=== PATIENT | female | born 1990 | race Caucasian/White ===

== ENCOUNTER 2017-02-28 09:12 | Emergency (ER) | payer BC ==
[2017-02-28 09:36] VITALS: BP 112/75
--- NOTE | 2017-02-28 10:34 | EDM.PDOC ---
ED HPI GENERAL MEDICAL PROBLEM - General Chief Complaint: Abdominal Pain Stated Complaint: RT SIDE BACK AND ABD PAIN Time Seen by Provider: 02/28/17 10:19 Source of Information: Reports: Patient History Limitations: Reports: No Limitations - History of Present Illness INITIAL COMMENTS - FREE TEXT/NARRATIVE: Patient is a 26-year-old female with a history of ectopic to the left fallopian tube. Presents to the ED complaining of right adnexa pain. States last night developed a dull ache to the right adnexa. Throughout the course of the evening pain has progressively gotten worse. She has increasing pain to this area with movement, palpation, runny her fingers over her skin. She has severe crampy sensation to this area consistent with previous ectopic . She has some intermittent lightheadedness and dysuria. She does note that there is some abnormal discharge described as being clear and slick. and patient are attempting to have another child. She's been on the control for one month. Breasts do feel tender. She's had a few episodes of diarrhea yesterday none today. No blood noted. Mildly nauseated with no emesis. States previous ectopic was initially diagnosed incorrectly as chlamydia. She's had no STDs in the past. States they had to do the ultrasound to rule in ectopic . In addition the test was negative at that time as well. She denies any fever, chills, nausea/vomiting, chest pain, shows breath, and dizziness with admission to the ED. Abdomen Pain Score (Numeric/FACES): 8 - Related Data Allergies Allergy/AdvReac Type Severity Reaction Status Date / Time No Known Allergies Allergy Verified 02/28/17 09:23 Home Meds: Home Meds . [No Known Home Meds] 02/28/17 [History] Past Medical History [employer] History: Reports: Ectopic , , Other (See Below) Other OB/BYN History: left tubal Endocrine/Metabolic History: Reports: Diabetes, Gestational Other Endocrine/Metabolic History: induced Hyperglycemia diet controlled - Past Surgical History Oncologic Surgical History: Reports: Biopsy of Breast Social & Family History - Family History Family Medical History: Noncontributory - Tobacco Use Smoking Status *Q: Never Smoker Years of Tobacco use: 2 Used Tobacco, but Quit: Yes Month Tobacco Last Used: 2013 Second Hand Smoke Exposure: No - Recreational Drug Use Recreational Drug Use: No ED ROS GENERAL - Review of Systems Review Of Systems: See Below Constitutional: Denies: Fever, Chills, Decreased Appetite Respiratory: Reports: No Symptoms Cardiovascular: Reports: No Symptoms GI/Abdominal: Reports: Abdominal Pain, Diarrhea (Intermittent yesterday none today), Nausea (Intermittent). Denies: Anorexia, Black Stool, Bloody Stool, Constipation, Difficulty Swallowing, Distension, Flatus, Hematemesis, Hematochezia, Melena, Vomiting : Reports: Dysuria. Denies: Flank Pain, Frequency, Hematuria, Urgency, Urinary Retention Musculoskeletal: Reports: Back Pain (Low back bilaterally) Neurological: Denies: Dizziness, Headache ED EXAM, GI/ABD - Physical Exam Exam: See Below Exam Limited By: No Limitations General Appearance: Alert, WD/WN, No Apparent Distress Ears: Hearing Grossly Normal Nose: Normal Inspection Throat/Mouth: Normal Voice, No Airway Compromise Neck: Normal Inspection, Supple Respiratory/Chest: No Respiratory Distress, Lungs Clear, Normal Breath Sounds, No Accessory Muscle Use, Chest Non-Tender Cardiovascular: Normal Peripheral Pulses, Regular Rate, Rhythm GI/Abdominal Exam: Normal Bowel Sounds, Soft, No Organomegaly, No Distention, Tender (Right adnexa) (Female) Exam: Normal External Exam, Adnexal Tenderness (Right side), Cervical Discharge (Thick milky colored discharge mild amount.), Vaginal Discharge. No: Adnexal Mass, Cervical Dilatation, Cervical Lesions (Mild redness to the cervix no tenderness with palpation.), Cervix Motion Tenderness, Uterine Tenderness, Vaginal Bleeding, Vaginal Lesions, Vaginal Tears Back Exam: Normal Inspection. No: CVA Tenderness (L), CVA Tenderness (R) Neurological: Alert, Oriented, CN II-XII Intact, Normal Cognition, No Motor/ Sensory Deficits Psychiatric: Normal Affect, Normal Mood Skin Exam: Warm, Dry, Intact, Normal Color Course - Vital Signs Last Recorded V/S: Last Vital Signs Temp 97.5 F 02/28/17 09:32 Pulse 88 02/28/17 09:32 Resp 18 02/28/17 09:32 BP 112/75 02/28/17 09:32 Pulse Ox 100 02/28/17 09:32 - Orders/Labs/Meds Labs: Laboratory Tests 02/28/17 02/28/17 02/28/17 Range/Units 09:24 09:24 10:15 WBC 9.58 (3.98-10.04) K/mm3 RBC 4.56 (3.98-5.22) M/mm3 Hgb 14.2 (11.2-15.7) gm/L Hct 41.8 (34.1-44.9) % MCV 91.7 (79.4-94.8) fl MCH 31.1 (25.6-32.2) pg MCHC 34.0 (32.2-35.5) g/dl RDW Std Deviation 40.2 (36.4-46.3) fL Plt Count 332 (182-369) K/mm3 MPV 8.4 L (9.4-12.3) fl Neut % (Auto) 66.2 (34.0-71.1) % Lymph % (Auto) 24.9 (19.3-51.7) % [place] % (Auto) 7.5 (4.7-12.5) % Eos % (Auto) 1.1 (0.7-5.8) Baso % (Auto) 0.2 (0.1-1.2) % Neut # (Auto) 6.33 H (1.56-6.13) K/mm3 Lymph # (Auto) 2.39 (1.18-3.74) K/mm3 [place] # (Auto) 0.72 H (0.24-0.36) K/mm3 Eos # (Auto) 0.11 (0.04-0.36) K/mm3 Baso # (Auto) 0.02 (0.01-0.08) K/mm3 Sodium (136-145) mEq/L Potassium (3.5-5.1) mEq/L Chloride (98-107) mEq/L Carbon Dioxide (21-32) mEq/L Anion Gap (5-15) BUN (7-18) mg/dL Creatinine (0.55-1.02) mg/dL Est Cr Clr Drug Dosing mL/min Estimated GFR (MDRD) (>60) mL/min BUN/Creatinine Ratio (14-18) Glucose (74-106) mg/dL Calcium (8.5-10.1) mg/dL Total Bilirubin (0.2-1.0) mg/dL AST (15-37) U/L ALT (14-59) U/L Alkaline Phosphatase (46-116) U/L C-Reactive Protein (<1.0) mg/dL Total Protein (6.4-8.2) g/dl Albumin (3.4-5.0) g/dl Globulin gm/dL Albumin/Globulin Ratio (1-2) HCG, Qual (NEGATIVE) Urine Color Yellow (Yellow) Urine Appearance Clear (Clear) Urine pH 6.0 (5.0-8.0) Ur Specific Vest > or = 1.030 (1.005-1.030) Urine Protein Trace H (Negative) Urine Glucose (UA) Negative (Negative) Urine Ketones Negative (Negative) Urine Occult Blood Trace-intact H (Negative) Urine Nitrite Negative (Negative) Urine Bilirubin Negative (Negative) Urine Urobilinogen 0.2 (0.2-1.0) Ur Leukocyte Esterase Negative (Negative) Urine RBC 0-5 (0-5) /hpf Urine WBC 0-5 (0-5) /hpf Ur Epithelial Cells 10-20 H (0-5) /hpf Urine Bacteria Few (FEW) /hpf Urine Mucus Not seen (FEW) /hpf Urine HCG, Qual Negative (NEGATIVE) C trachomatis DNA (PCR) N gonorrhoeae DNA (PCR) 02/28/17 02/28/17 02/28/17 Range/Units 10:15 10:15 10:15 WBC (3.98-10.04) K/mm3 RBC (3.98-5.22) M/mm3 Hgb (11.2-15.7) gm/L Hct (34.1-44.9) % MCV (79.4-94.8) fl MCH (25.6-32.2) pg MCHC (32.2-35.5) g/dl RDW Std Deviation (36.4-46.3) fL Plt Count (182-369) K/mm3 MPV (9.4-12.3) fl Neut % (Auto) (34.0-71.1) % Lymph % (Auto) (19.3-51.7) % [place] % (Auto) (4.7-12.5) % Eos % (Auto) (0.7-5.8) Baso % (Auto) (0.1-1.2) % Neut # (Auto) (1.56-6.13) K/mm3 Lymph # (Auto) (1.18-3.74) K/mm3 [place] # (Auto) (0.24-0.36) K/mm3 Eos # (Auto) (0.04-0.36) K/mm3 Baso # (Auto) (0.01-0.08) K/mm3 Sodium 139 (136-145) mEq/L Potassium 4.0 (3.5-5.1) mEq/L Chloride 103 (98-107) mEq/L Carbon Dioxide 24 (21-32) mEq/L Anion Gap 16.0 H (5-15) BUN 12 (7-18) mg/dL Creatinine 0.8 (0.55-1.02) mg/dL Est Cr Clr Drug Dosing 87.38 mL/min Estimated GFR (MDRD) > 60 (>60) mL/min BUN/Creatinine Ratio 15.0 (14-18) Glucose 101 (74-106) mg/dL Calcium 9.4 (8.5-10.1) mg/dL Total Bilirubin 0.5 (0.2-1.0) mg/dL AST 22 (15-37) U/L ALT 36 (14-59) U/L Alkaline Phosphatase 57 (46-116) U/L C-Reactive Protein 0.8 (<1.0) mg/dL Total Protein 7.8 (6.4-8.2) g/dl Albumin 3.8 (3.4-5.0) g/dl Globulin 4.0 gm/dL Albumin/Globulin Ratio 1.0 (1-2) HCG, Qual Negative (NEGATIVE) Urine Color (Yellow) Urine Appearance (Clear) Urine pH (5.0-8.0) Ur Specific Vest (1.005-1.030) Urine Protein (Negative) Urine Glucose (UA) (Negative) Urine Ketones (Negative) Urine Occult Blood (Negative) Urine Nitrite (Negative) Urine Bilirubin (Negative) Urine Urobilinogen (0.2-1.0) Ur Leukocyte Esterase (Negative) Urine RBC (0-5) /hpf Urine WBC (0-5) /hpf Ur Epithelial Cells (0-5) /hpf Urine Bacteria (FEW) /hpf Urine Mucus (FEW) /hpf Urine HCG, Qual (NEGATIVE) C trachomatis DNA (PCR) N gonorrhoeae DNA (PCR) 10/11/17 Range/Units 10:54 WBC (3.98-10.04) K/mm3 RBC (3.98-5.22) M/mm3 Hgb (11.2-15.7) gm/L Hct (34.1-44.9) % MCV (79.4-94.8) fl MCH (25.6-32.2) pg MCHC (32.2-35.5) g/dl RDW Std Deviation (36.4-46.3) fL Plt Count (182-369) K/mm3 MPV (9.4-12.3) fl Neut % (Auto) (34.0-71.1) % Lymph % (Auto) (19.3-51.7) % [place] % (Auto) (4.7-12.5) % Eos % (Auto) (0.7-5.8) Baso % (Auto) (0.1-1.2) % Neut # (Auto) (1.56-6.13) K/mm3 Lymph # (Auto) (1.18-3.74) K/mm3 [place] # (Auto) (0.24-0.36) K/mm3 Eos # (Auto) (0.04-0.36) K/mm3 Baso # (Auto) (0.01-0.08) K/mm3 Sodium (136-145) mEq/L Potassium (3.5-5.1) mEq/L Chloride (98-107) mEq/L Carbon Dioxide (21-32) mEq/L Anion Gap (5-15) BUN (7-18) mg/dL Creatinine (0.55-1.02) mg/dL Est Cr Clr Drug Dosing mL/min Estimated GFR (MDRD) (>60) mL/min BUN/Creatinine Ratio (14-18) Glucose (74-106) mg/dL Calcium (8.5-10.1) mg/dL Total Bilirubin (0.2-1.0) mg/dL AST (15-37) U/L ALT (14-59) U/L Alkaline Phosphatase (46-116) U/L C-Reactive Protein (<1.0) mg/dL Total Protein (6.4-8.2) g/dl Albumin (3.4-5.0) g/dl Globulin gm/dL Albumin/Globulin Ratio (1-2) HCG, Qual (NEGATIVE) Urine Color (Yellow) Urine Appearance (Clear) Urine pH (5.0-8.0) Ur Specific Vest (1.005-1.030) Urine Protein (Negative) Urine Glucose (UA) (Negative) Urine Ketones (Negative) Urine Occult Blood (Negative) Urine Nitrite (Negative) Urine Bilirubin (Negative) Urine Urobilinogen (0.2-1.0) Ur Leukocyte Esterase (Negative) Urine RBC (0-5) /hpf Urine WBC (0-5) /hpf Ur Epithelial Cells (0-5) /hpf Urine Bacteria (FEW) /hpf Urine Mucus (FEW) /hpf Urine HCG, Qual (NEGATIVE) C trachomatis DNA (PCR) Not detected N gonorrhoeae DNA (PCR) Not detected - Re-Assessments/Exams Free Text/Narrative Re-Assessment/Exam: IV established. Pain is under control at this time with lying still. Initial labs include CBC, chem 14, hCG qualitative serum and urine, and UA. We'll complete a vaginal exam including: Speculum and bimanual. Once results of labs are present will order transvaginal ultrasound either OB or non-OB. Vaginal exam revealed mild amount of thick white discharge in the vaginal vault with mild redness to the cervix. No cervical motion tenderness. Pain with palpation of the right adnexa. Wet prep along with GC ordered. Labs reviewed: CBC, chem 14 essentially normal. CRP normal. HCG negative. UA trace blood negative for infection. GC negative. Wet Prep was negative for any concerning findings. Ultrasound impression: Small amount of free fluid within the pelvis most likely physiological. Pelvic ultrasound is otherwise unremarkable. Shared results of exams and labs with patient. She continues have pain in the right adnexal area. Offered to obtain a CT the abdomen and pelvis to further delineate cause of pain. Patient has opted not to at this point and will return back if pain worsens. Discharge instructions as documented. Departure - Departure Time of Disposition: 13:13 Disposition: Home, Self-Care 01 Condition: Good Clinical Impression: Right adnexal tenderness - Discharge Information Instructions: Abdominal Pain, Adult, Enba-tc-Ulpt Referrals: Yulia Arriola DO [Primary Care Provider] - Forms: ED Department Discharge Additional Instructions: Unclear at this point etiology of current complaint. Ultrasound, blood work, and vaginal exam did not reveal any concerning findings. Thus if you develop any new or worsening symptoms including increasing pain please return to ED for reevaluation. Follow-up with [employer] specialist this coming week for reevaluation. Take Tylenol and ibuprofen in alternating fashion for discomfort. No driving this afternoon since receiving a sedative medication in the ED.
[2017-02-28 12:50] LABS: C. TRACHOMATIS BY PCR NOT DETECTED; N. GONORRHOEAE BY PCR NOT DETECTED
--- NOTE | 2017-02-28 12:59 | US ---
Pelvic ultrasound: Multiple real-time images were obtained transvaginally. Uterus is anteverted. No myometrial abnormality is seen. Endometrial thickness is 5.3 mm. There is a small amount of free fluid scattered within the pelvis. Ovaries are seen and show follicles. No larger cyst or solid abnormality is appreciated. Measurements: Uterus: Length 7.2 cm, AP height 3.4 cm, transverse width is 4.4 cm Right ovary: 3.2 x 1.9 x 2.7 cm Left ovary: 2.7 x 1.1 x 1.7 cm Impression: 1. Small amount of free fluid within the pelvis most likely physiologic. 2. Pelvic ultrasound is otherwise unremarkable. Diagnostic code #2
== END 2017-02-28 13:30 | disposition home or self-care (01) ==
LOC: JD.ED 09:12
DX: R10.2 Pelvic and perineal pain (principal)
CPT/HCPCS: 36415; 76830; 76830-26; 80053; 81001; 81025; 84703; 85025; 86140; 87210; 87491; 87591; 87808; 99284; 99284-25

== ENCOUNTER 2017-09-10 09:44 | Emergency (ER) | payer BC ==
[2017-09-10 09:58] VITALS: BP 110/67
[2017-09-10] MEDS ORDERED: Dextrose 5%-0.9% NaCl 1,000 ML IV SCH (10:00)
--- NOTE | 2017-09-10 10:00 | EDM.PDOC ---
ED HPI GENERAL MEDICAL PROBLEM - General Chief Complaint: CORRECTIONAL SERGEANT Problem Stated Complaint: 6 WKS PG CRAMPING Time Seen by Provider: 09/10/17 10:00 Source of Information: Reports: Patient History Limitations: Reports: No Limitations - History of Present Illness INITIAL COMMENTS - FREE TEXT/NARRATIVE: 7-year-old female presents to the ED with acute onset of left lower quadrant left pelvic pain. She states she awoke from sleep about 0230 hours this morning with severe pain left lower quadrant of the pelvis and abdomen. She states it took about 3-4 hours but she was able to go back to sleep for short period of time. Upon awakening this morning the pain factor is worse left lower quadrant. It hurts to walk it hurts to sit and patient is known to be with last menstrual period around July making her about 6 weeks gestation. She 's had no bleeding per vagina. She has had a previous ectopic . She is 5 para 1 with a 2-year-old at home. Baby was born vaginally. She had surgery for ruptured ectopic . Vital signs are at this time are stable. Pain radiates through to her left lower back. States her bowel function has been normal. No genitourinary complaints. No fever no chills. He still little nauseated. Breath still feel full signs symptoms of still present. Onset: Today Onset Date: 09/10/17 Onset Time: 02:30 Duration: Hour(s): Location: Reports: Abdomen (Left lower quadrant of abdomen and pelvis.) Quality: Reports: Ache, Throbbing Severity: Moderate (3 out of 10 at present) Improves with: Reports: Rest Worsens with: Reports: Other, Movement Context: Reports: Other. Denies: Activity (Coughing or walking.), Exercise, Lifting, Sick Contact, Trauma Associated Symptoms: Reports: No Other Symptoms (Spontaneous occurrence during sleep. Awoke from sleep around 0-30 hours.). 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 LNMP started Jul 27.) Other OB/BYN History: left tubal Endocrine/Metabolic History: Reports: Diabetes, Gestational Other Endocrine/Metabolic History: induced Hyperglycemia diet controlled - Past Surgical History Oncologic Surgical History: Reports: Biopsy of Breast Social & Family History - Family History Family Medical History: Noncontributory - Tobacco Use Smoking Status *Q: Never Smoker Years of Tobacco use: 2 Used Tobacco, but Quit: Yes Month/Year Tobacco Last Used: 2013 Second Hand Smoke Exposure: No - Recreational Drug Use Recreational Drug Use: No - Living Situation & Occupation Living situation: Reports: Occupation: Unemployed (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 Denies: Fever, Chills, Weight Loss HEENT: Reports: No Symptoms Respiratory: Reports: No Symptoms Cardiovascular: Reports: No Symptoms Endocrine: Reports: Fatigue GI/Abdominal: Reports: Abdominal Pain (See history of present illness.) : Reports: No Symptoms Musculoskeletal: Reports: Back Pain (Low back pain on the left side correlating with onset of left lower quadrant) Skin: Reports: No Symptoms Neurological: Reports: No Symptoms Psychiatric: Reports: No Symptoms Hematologic/Lymphatic: Reports: No Symptoms Immunologic: Reports: No Symptoms ED EXAM - Physical Exam Exam: See Below Exam Limited By: No Limitations General Appearance: Alert, WD/WN, Mild Distress Eye Exam: Bilateral Eye: Normal Inspection Respiratory/Chest: No Respiratory Distress, Lungs Clear, Normal Breath Sounds, No Accessory Muscle Use Cardiovascular: Normal Peripheral Pulses, No Edema, No Gallop, Tachycardia ( Tachycardia rest 1 1/m.) GI/Abdominal Exam: Guarding (Tenderness localized to the left lower card and with guarding and very mild rebound.), Rebound, Tender, Abnormal Bowel Sounds ( Bowel sounds are quiet sent.). No: Rigid (Mild) (Female) Exam: Normal External Exam, Adnexal Tenderness, Cervix Motion Tenderness (Left adnexal tenderness without ability to palpate any definitive mass. Ankle motion tenderness to the left side.), Enlarged Uterus (.), Other ( Cervical os is closed.). No: Tissue Present in Cervix/Vagina Heart Tones: Not [place] Back Exam: No: CVA Tenderness (L), CVA Tenderness (R) Extremities: Normal Inspection, Normal Range of Motion, Non-Tender, No Pedal Edema Neurological: Alert, Oriented, CN II-XII Intact, Normal Cognition Psychiatric: Normal Affect, Normal Mood Skin Exam: Warm, Dry, Intact, Normal Color, No Rash Course - Vital Signs Last Recorded V/S: Last Vital Signs Temp 36.2 C 09/10/17 09:54 Pulse 101 H 09/10/17 09:54 Resp 15 09/10/17 09:54 BP 110/67 09/10/17 09:54 Pulse Ox 99 09/10/17 09:54 - Orders/Labs/Meds Orders: Active Orders 24 hr Category Date Time Status URINALYSIS W/MICROSCOPIC [UA W/MICROSCOPIC] [URIN] Stat Lab 09/10/17 10:10 Ordered Dextrose 5%-0.9% NaCl [Dextrose 5%-Normal Saline] 1,000 Med 09/10/17 10:00 Active ml IV ASDIRECTED Medication Orders Dextrose/Sodium Chloride (Dextrose 5%-Normal Saline) 1,000 mls @ 150 mls/hr IV ASDIRECTED ADRIEL Last Admin: 09/10/17 10:50 Dose: 150 mls/hr Labs: Laboratory Tests 09/10/17 09/10/17 09/10/17 Range/Units 10:10 10:53 10:53 WBC 7.24 (3.98-10.04) K/mm3 RBC 4.44 (3.98-5.22) M/mm3 Hgb 13.7 (11.2-15.7) gm/L Hct 40.4 (34.1-44.9) % MCV 91.0 (79.4-94.8) fl MCH 30.9 (25.6-32.2) pg MCHC 33.9 (32.2-35.5) g/dl RDW Std Deviation 40.3 (36.4-46.3) fL Plt Count 223 (182-369) K/mm3 MPV 8.4 L (9.4-12.3) fl Neutrophils % (Manual) 70 H (40-60) % Band Neutrophils % 0 (0-10) % Lymphocytes % (Manual) 25 (20-40) % Atypical Lymphs % 0 % Monocytes % (Manual) 1 L (2-10) % Eosinophils % (Manual) 3 (0.7-5.8) % Basophils % (Manual) 1 (0.1-1.2) Platelet Estimate Adequate RBC Morph Comment Normal Sodium 135 L (136-145) mEq/L Potassium 3.7 (3.5-5.1) mEq/L Chloride 100 (98-107) mEq/L Carbon Dioxide 23 (21-32) mEq/L Anion Gap 15.7 H (5-15) BUN 12 (7-18) mg/dL Creatinine 0.8 (0.55-1.02) mg/dL Est Cr Clr Drug Dosing 75.20 mL/min Estimated GFR (MDRD) > 60 (>60) mL/min BUN/Creatinine Ratio 15.0 (14-18) Glucose 95 (74-106) mg/dL Calcium 9.5 (8.5-10.1) mg/dL Total Bilirubin 0.3 (0.2-1.0) mg/dL AST 18 (15-37) U/L ALT 25 (14-59) U/L Alkaline Phosphatase 53 (46-116) U/L Total Protein 8.1 (6.4-8.2) g/dl Albumin 4.0 (3.4-5.0) g/dl Globulin 4.1 gm/dL Albumin/Globulin Ratio 1.0 (1-2) HCG, Quant mIU/mL Urine Color Yellow (Yellow) Urine Appearance Clear (Clear) Urine pH 6.5 (5.0-8.0) Ur Specific [place] 1.020 (1.005-1.030) Urine Protein Negative (Negative) Urine Glucose (UA) Negative (Negative) Urine Ketones 2+ H (Negative) Urine Occult Blood Negative (Negative) Urine Nitrite Negative (Negative) Urine Bilirubin Negative (Negative) Urine Urobilinogen 0.2 (0.2-1.0) Ur Leukocyte Esterase Negative (Negative) Urine RBC 0-5 (0-5) /hpf Urine WBC 0-5 (0-5) /hpf Ur Epithelial Cells 5-10 H (0-5) /hpf Urine Bacteria Few (FEW) /hpf Urine Mucus Not seen (FEW) /hpf Blood Type Gel Antibody Screen 09/10/17 09/10/17 Range/Units 10:53 10:53 WBC (3.98-10.04) K/mm3 RBC (3.98-5.22) M/mm3 Hgb (11.2-15.7) gm/L Hct (34.1-44.9) % MCV (79.4-94.8) fl MCH (25.6-32.2) pg MCHC (32.2-35.5) g/dl RDW Std Deviation (36.4-46.3) fL Plt Count (182-369) K/mm3 MPV (9.4-12.3) fl Neutrophils % (Manual) (40-60) % Band Neutrophils % (0-10) % Lymphocytes % (Manual) (20-40) % Atypical Lymphs % % Monocytes % (Manual) (2-10) % Eosinophils % (Manual) (0.7-5.8) % Basophils % (Manual) (0.1-1.2) Platelet Estimate RBC Morph Comment Sodium (136-145) mEq/L Potassium (3.5-5.1) mEq/L Chloride (98-107) mEq/L Carbon Dioxide (21-32) mEq/L Anion Gap (5-15) BUN (7-18) mg/dL Creatinine (0.55-1.02) mg/dL Est Cr Clr Drug Dosing mL/min Estimated GFR (MDRD) (>60) mL/min BUN/Creatinine Ratio (14-18) Glucose (74-106) mg/dL Calcium (8.5-10.1) mg/dL Total Bilirubin (0.2-1.0) mg/dL AST (15-37) U/L ALT (14-59) U/L Alkaline Phosphatase (46-116) U/L Total Protein (6.4-8.2) g/dl Albumin (3.4-5.0) g/dl Globulin gm/dL Albumin/Globulin Ratio (1-2) HCG, Quant 4478.0 mIU/mL Urine Color (Yellow) Urine Appearance (Clear) Urine pH (5.0-8.0) Ur Specific [place] (1.005-1.030) Urine Protein (Negative) Urine Glucose (UA) (Negative) Urine Ketones (Negative) Urine Occult Blood (Negative) Urine Nitrite (Negative) Urine Bilirubin (Negative) Urine Urobilinogen (0.2-1.0) Ur Leukocyte Esterase (Negative) Urine RBC (0-5) /hpf Urine WBC (0-5) /hpf Ur Epithelial Cells (0-5) /hpf Urine Bacteria (FEW) /hpf Urine Mucus (FEW) /hpf Blood Type AB POSITIVE Gel Antibody Screen Negative Meds: Medications Generic Name Dose Route Start Last Admin Trade Name Freroxanne PRN Reason Stop Dose Admin Dextrose/Sodium Chloride 1,000 mls @ 150 mls/hr 09/10/17 10:00 09/10/17 10:50 Dextrose 5%-Normal Saline IV 150 mls/hr ASDIRECTED ADRIEL Administration - Radiology Interpretation Free Text/Narrative:: 27-year-old female presents to the ED with diffuse left lower quadrant abdominal pain. Patient pain is deep in the pelvis and radiates through to her left lower back. Awoke from sleep with pain in this area about 0-30 hours this morning. Pain is worsened by deep breathing movement walking. She is known to be with last menstrual period first day June 29. This would make her own 6 weeks gestation. She's had a previous ectopic with requirement for surgery due to active bleeding. She is 5 para 1 with a 2 -year-old at home. She had a normal vaginal delivery at that time. No other abdominal surgery. Emanation reveals question bowel sounds. Tenderness left lower quadrant with mild rebound. Mild guarding. Pelvic examination reveals tenderness left adnexa without ability to palpate a definitive mass. Uterus is feels to be about 4 weeks in size. She reports 2 weeks ago her quantitative beta hCG was only 82. Pain is 3 out of 10. Plan transvaginal ultrasound. Quantitative beta-hCG to be repeated all she has done at [place] the labs will be available until later this afternoon. Baseline CBC CMP and type and screen also to be done as well as a urinalysis. - Re-Assessments/Exams Free Text/Narrative Re-Assessment/Exam: 09/10/17 12:31 abs reveal a normal white count of 7.24 with 70% neutrophils no bands reported. Hemoglobin is 13.7 with hematocrit of 40.4. Platelet count is 223,000. Sodium is 135 with potassium of 3.7. Blood 100 with bicarbonate 23. And a gap is 15.7. BUNs 12 with a creatinine is 0.8. Glucose is 95. Calcium is 9.5. Liver function is normal. Quantitative beta-hCG is 4478. This correlates with an early first trimester 4-5 weeks. The urinalysis is otherwise normal. The ultrasound done transvaginally suggest a gestational sac at 0.62 cm 5 weeks 1 day. It is too early to see a pole. There is a small cystic area within the endometrial cavity. Decidual reaction is appreciated. Findings are felt to be due to very early . Radiologist recommends repeat study at 11-14 days. Right ovary shows a small, slightly cold complicated cysts most likely due to collapsing corpus luteum. The left ovary is not optimally sleep seen but no discrete abnormalities are appreciated. Patient so advised of the findings. She has an CORRECTIONAL SERGEANT appointment booked for September 27. She reported that she did not need anything further for pain relief Tylenol would be enough. She was just very relieved to not have an ectopic . Departure - Departure Time of Disposition: 12:38 Disposition: Home, Self-Care 01 Condition: Fair Clinical Impression: First trimester , Intrauterine , Abdominal pain, left lower quadrant - Discharge Information Referrals: Yulia Arriola DO [Primary Care Provider] - Forms: ED Department Discharge Additional Instructions: Evaluation the emergency room today in regards to development of somewhat sudden onset of severe left lower quadrant pelvic pain during the night. Was worse this morning. On associated cramping colicky component to the pain. Known to be with last trimester. July 27. Correlates with a 6 week gestation. An ultrasound was done today and confirms an intrauterine at 5 weeks 1 day. No pole could yet be identified as is a bit too early to identify the fetus by ultrasound. The quantitative beta-hCG or the measurement of hormonal is 4478 which correlates with about a 5 week . No evidence of ectopic . The left ovary was very poorly visualized I'm suspicious that you may have had a small cyst of the ovary that popped this morning to cause your acute pain. There is no evidence of any bleeding in the pelvis. The right ovary appears to contain a corpus luteum which is maintaining the at this point in time. Tylenol for pain if needed. Tibia as tolerated. Follow-up with CORRECTIONAL SERGEANT in about 14 days to have repeat transvaginal ultrasound. Of course return to the ED if you develop increasing pain or significant vaginal bleeding were your soaking a pad per hour for 2 consecutive hours. - My Orders Last 24 Hours: My Active Orders 09/10/17 10:00 Dextrose 5%-0.9% NaCl [Dextrose 5%-Normal Saline] 1,000 ml IV ASDIRECTED 09/10/17 10:10 URINALYSIS W/MICROSCOPIC [UA W/MICROSCOPIC] [URIN] Stat - Assessment/Plan Last 24 Hours: My Active Orders 09/10/17 10:00 Dextrose 5%-0.9% NaCl [Dextrose 5%-Normal Saline] 1,000 ml IV ASDIRECTED 09/10/17 10:10 URINALYSIS W/MICROSCOPIC [UA W/MICROSCOPIC] [URIN] Stat
--- NOTE | 2017-09-10 12:15 | US ---
First trimester obstetrical ultrasound: Multiple real-time images were obtained transvaginally. Comparison: No previous study for current . Findings: Small cystic area is seen within the endometrial cavity. Decidual reaction is seen. Sac size too small to visualize yolk sac or pole. Right ovary shows a small slightly complicated cyst most likely due to collapsing corpus luteum. Left ovary not optimally seen but no discrete abnormality is otherwise seen. Measurements: Gestational sac: 0.62 cm - 5 weeks 1 day Impression: 1. Small cystic area within the endometrial cavity. Decidual reaction is seen. Findings most likely due to very early . Recommend repeat study in 11 days to confirm. Diagnostic code #3
== END 2017-09-10 12:45 | disposition home or self-care (01) ==
LOC: JD.ED 09:44
DX: O99.89 Other specified diseases and conditions complicating pregnancy, childbirth and the puerperium (principal); R10.32 Left lower quadrant pain; O24.419 Gestational diabetes mellitus in pregnancy, unspecified control; Z3A.01 Less than 8 weeks gestation of pregnancy
CPT/HCPCS: 36415; 76817; 80053; 81001; 84702; 85025; 86850; 86900; 86901; 96360; 96361; 99284; J7042; 99283

== ENCOUNTER 2017-11-27 04:26 | Emergency (ER) | payer BC ==
[2017-11-27 04:36] VITALS: BP 115/71
[2017-11-27] MEDS ORDERED: Ondansetron 4 MG Tab.DIS PO ONE ×2 (04:52→06:37)
[2017-11-27] MEDS ORDERED: Ondansetron 4 MG/2 ML SDV IVPUSH ONE (04:52)
[2017-11-27] MEDS ORDERED: Ondansetron 4 MG Tab.DIS ONE (04:52)
--- NOTE | 2017-11-27 04:52 | EDM.PDOC ---
ED HPI GENERAL MEDICAL PROBLEM - General Chief Complaint: Gastrointestinal Problem Stated Complaint: 16 weeks preg w possible food poisioning Time Seen by Provider: 11/27/17 04:42 - History of Present Illness INITIAL COMMENTS - FREE TEXT/NARRATIVE: 27-year-old female presents with nausea vomiting diarrhea. Patient is 16 weeks . About 8 hours ago developed severe nausea vomiting and diarrhea now she just has dry heaves. The nausea and vomiting is associated with cramping and generalized abdominal discomfort. Patient has a younger son who had similar episode that resolved a couple of days ago lasted a few days. The patient wonders if perhaps it could be food poisoning from eating watermelon Bilateral Lower Abdominal Pain Score (Numeric/FACES): 5 - Related Data Allergies Allergy/AdvReac Type Severity Reaction Status Date / Time No Known Allergies Allergy Verified 11/27/17 04:36 Home Meds: Home Meds Vitamin. 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 , , Other (See Below) Other REVENUE FIELD AGENT History: left tubal Endocrine/Metabolic History: Reports: Diabetes, Gestational Other Endocrine/Metabolic History: induced Hyperglycemia diet controlled - Past Surgical History Oncologic Surgical History: Reports: Biopsy of Breast Social & Family History - Family History Family Medical History: Noncontributory - Tobacco Use Smoking Status *Q: Never Smoker - Caffeine Use Caffeine Use: Reports: Coffee - Recreational Drug Use Recreational Drug Use: No - Living Situation & Occupation Living situation: Reports: Occupation: Unemployed ([id number] mother.) ED ROS GENERAL - Review of Systems Review Of Systems: See Below Constitutional: Reports: No Symptoms HEENT: Reports: No Symptoms Respiratory: Reports: No Symptoms Cardiovascular: Reports: No Symptoms Endocrine: Reports: No Symptoms GI/Abdominal: Reports: Anorexia, Diarrhea, Nausea, Vomiting. Denies: Constipation : Reports: No Symptoms, Other (She is feeling activity) Musculoskeletal: Reports: No Symptoms Skin: Reports: No Symptoms ED EXAM - Physical Exam Exam: See Below Exam Limited By: No Limitations General Appearance: Alert, No Apparent Distress Head: Atraumatic, Normocephalic Neck: Normal Inspection, Supple, Non-Tender, Full Range of Motion Respiratory/Chest: No Respiratory Distress, Lungs Clear, Normal Breath Sounds Cardiovascular: Regular Rate, Rhythm, No Edema, No Murmur GI/Abdominal Exam: Normal Bowel Sounds, Soft, Non-Tender, Other (Fundal height approximately 4 cm below the umbilicus heart tones are audible at 156 bpm) . No: Distended, Guarding, Rigid, Rebound Fundal Height In cm: 0 Back Exam: Normal Inspection, CVA Tenderness (L) (Very mild). No: CVA Tenderness (R) Extremities: Normal Inspection, No Pedal Edema Lymphatic: No Adenopathy Course - Vital Signs Last Recorded V/S: Last Vital Signs Temp 36.4 C 11/27/17 04:33 Pulse 115 H 11/27/17 04:33 Resp 18 11/27/17 04:33 BP 115/71 11/27/17 04:33 Pulse Ox 100 11/27/17 04:33 - Orders/Labs/Meds Orders: Active Orders 24 hr Category Date Time Status URINALYSIS W/MICROSCOPIC [UA W/MICROSCOPIC] [URIN] Stat Lab 11/27/17 06:18 Unverified Labs: Laboratory Tests 11/27/17 11/27/17 11/27/17 Range/Units 05:00 05:00 06:10 WBC 10.47 H (3.98-10.04) K/mm3 RBC 4.45 (3.98-5.22) M/mm3 Hgb 13.7 (11.2-15.7) gm/L Hct 39.4 (34.1-44.9) % MCV 88.5 (79.4-94.8) fl MCH 30.8 (25.6-32.2) pg MCHC 34.8 (32.2-35.5) g/dl RDW Std Deviation 38.5 (36.4-46.3) fL Plt Count 276 (182-369) K/mm3 MPV 8.6 L (9.4-12.3) fl Neutrophils % (Manual) 80 H (40-60) % Band Neutrophils % 11 H (0-10) % Lymphocytes % (Manual) 7 L (20-40) % Atypical Lymphs % 0 % Monocytes % (Manual) 1 L (2-10) % Eosinophils % (Manual) 1 (0.7-5.8) % Basophils % (Manual) 0 L (0.1-1.2) Toxic Granulation 1+ slight Platelet Estimate Adequate RBC Morph Comment Normal Sodium 141 (136-145) mEq/L Potassium 4.0 (3.5-5.1) mEq/L Chloride 106 (98-107) mEq/L Carbon Dioxide 20 L (21-32) mEq/L Anion Gap 19.0 H (5-15) BUN 9 (7-18) mg/dL Creatinine 0.8 (0.55-1.02) mg/dL Est Cr Clr Drug Dosing 75.20 mL/min Estimated GFR (MDRD) > 60 (>60) mL/min BUN/Creatinine Ratio 11.3 L (14-18) Glucose 120 H (74-106) mg/dL Calcium 8.6 (8.5-10.1) mg/dL Total Bilirubin 0.6 (0.2-1.0) mg/dL AST 12 L (15-37) U/L ALT 12 L (14-59) U/L Alkaline Phosphatase 56 (46-116) U/L Total Protein 7.9 (6.4-8.2) g/dl Albumin 3.2 L (3.4-5.0) g/dl Globulin 4.7 gm/dL Albumin/Globulin Ratio 0.7 L (1-2) Urine Color Yellow (Yellow) Urine Appearance Clear (Clear) Urine pH 6.5 (5.0-8.0) Ur Specific [place] 1.020 (1.005-1.030) Urine Protein 1+ H (Negative) Urine Glucose (UA) Negative (Negative) Urine Ketones 3+ H (Negative) Urine Occult Blood Negative (Negative) Urine Nitrite Negative (Negative) Urine Bilirubin Negative (Negative) Urine Urobilinogen 0.2 (0.2-1.0) Ur Leukocyte Esterase Negative (Negative) Urine RBC Not seen (0-5) /hpf Urine WBC 0-5 (0-5) /hpf Ur Epithelial Cells 0-5 (0-5) /hpf Urine Bacteria Rare (FEW) /hpf Urine Mucus Few (FEW) /hpf Meds: Medications Discontinued Medications Generic Name Dose Route Start Last Admin Trade Name Freq PRN Reason Stop Dose Admin Acetaminophen 650 mg 11/27/17 06:46 11/27/17 06:48 Tylenol PO 11/27/17 06:47 650 mg NOW ONE Administration Acetaminophen Confirm 11/27/17 06:46 11/27/17 06:57 Tylenol Administered 11/27/17 06:47 650 mg Dose Administration 650 mg .ROUTE .STK-MED ONE Lactated Ringer's 2,000 mls @ 999 mls/hr 11/27/17 04:53 11/27/17 05:01 Ringers, Lactated IV 11/27/17 06:53 999 mls/hr .BOLUS ONE Administration Ondansetron HCl 4 mg 11/27/17 04:52 11/27/17 05:01 Zofran Odt PO 11/27/17 04:53 4 mg ONETIME ONE Administration Ondansetron HCl 4 mg 11/27/17 04:52 Zofran IVPUSH 11/27/17 04:53 ONETIME ONE Ondansetron HCl Confirm 11/27/17 04:52 11/27/17 05:01 Zofran Odt Administered 11/27/17 04:53 Not Given Dose 4 mg .ROUTE .STK-MED ONE Ondansetron HCl 4 mg 11/27/17 06:37 11/27/17 06:48 Zofran Odt PO 11/27/17 06:38 4 mg ONETIME ONE Administration - Re-Assessments/Exams Free Text/Narrative Re-Assessment/Exam: 11/27/17 07:44 Patient has done well here in the emergency room she did require a second Zofran ODT. She's received 2 L of fluid feels better she would like to go home and get some rest. Case discussed with Dr. Robles, including the labs, of concern is a white count of 10,470 80% segs 11% bands. Patient will be discharged home with Zofran ODT advised to follow a clear liquid diet follow-up with Dr. Robles tomorrow if the patient has difficulty keeping fluids down today she is to call Dr. Robles who would be happy to arrange outpatient infusion as needed. Departure - Departure Time of Disposition: 07:45 Disposition: Home, Self-Care 01 Clinical Impression: Acute gastroenteritis, 16 weeks gestation of - Discharge Information Prescriptions: Ondansetron [Zofran Odt] 8 mg PO Q6H PRN #10 tab.rapdis PRN Reason: Nausea/Vomiting Referrals: Yulia Arriola DO [Primary Care Provider] - Forms: ED Department Discharge Additional Instructions: Return to the emergency room with any questions problems or worsening symptoms. Uses Zofran as needed for nausea and vomiting. Clear liquid diet for the next 24 hours then slowly advance as tolerated. follow-up with Dr. Robles tomorrow. Call today with any questions or problems. - My Orders Last 24 Hours: My Active Orders 11/27/17 06:18 URINALYSIS W/MICROSCOPIC [UA W/MICROSCOPIC] [URIN] Stat - Assessment/Plan Last 24 Hours: My Active Orders 11/27/17 06:18 URINALYSIS W/MICROSCOPIC [UA W/MICROSCOPIC] [URIN] Stat
[2017-11-27] MEDS ORDERED: Lactated Ringers 2,000 ML IV ONE (04:53)
[2017-11-27] MEDS ORDERED: Acetaminophen 325 MG Tab PO ONE (06:46)
[2017-11-27] MEDS ORDERED: Acetaminophen 325 MG Tab ONE (06:46)
== END 2017-11-27 08:36 | disposition home or self-care (01) ==
LOC: JD.ED 04:26
DX: O99.612 Diseases of the digestive system complicating pregnancy, second trimester (principal); K52.9 Noninfective gastroenteritis and colitis, unspecified; Z79.899 Other long term (current) drug therapy; Z3A.16 16 weeks gestation of pregnancy
CPT/HCPCS: 36415; 80053; 81001; 85007; 85027; 96360; 96361; 99284; A9270; J7120